=== PATIENT | male | born 1955 | race American Indian/Alaskan Native ===

== ENCOUNTER 2021-05-08 19:48 | Inpatient (IN) | payer OTHER ==
--- NOTE | 2021-05-08 21:36 | Emergency Department Report ---
HPI - General Chief Complaint: Dyspnea/Respdistress Time Seen by Provider: 05/08/21 21:22 - HPI HPI: 65-year-old -Stateless male presents to the emergency department with complaint of low oxygen found at home on the finger pulse oximeter. The patient tested positive for COVID-19 6 days ago. I am not sure what symptoms prompted him to get tested at that time. He has had some intermittent low-grade fevers, some mild lower abdominal discomfort, early satiety. He says that he came into the emergency department today because the finger pulse oximeter "never got above 90" all day. The patient denies feeling short of breath. He denies having any past medical history. No tobacco or illicit drug use. He has not taken anything for symptoms prior to presentation today. ED Past Medical Hx - Past Medical History Previous Medical History?: No - Surgical History Past Surgical History?: No ED Review of Systems ROS: Stated complaint: COVID+ LOW O2 Other details as noted in HPI Comment: All other systems reviewed and negative Constitutional: fever, weakness Eyes: denies: eye pain, vision change ENT: denies: ear pain, throat pain Respiratory: denies: shortness of breath, wheezing Cardiovascular: denies: chest pain, edema Gastrointestinal: abdominal pain. denies: vomiting Genitourinary: denies: dysuria, discharge Musculoskeletal: denies: back pain, arthralgia Skin: denies: rash, lesions Neurological: denies: numbness, paresthesias Physical Exam - Physical Exam Vital Signs: Vital Signs 05/08/21 20:50 Temperature 98.0 F Pulse Rate 47 L Respiratory 18 Rate Blood Pressure 116/67 O2 Sat by Pulse 85 Oximetry Physical Exam: GENERAL: The patient is well-developed well-nourished. HENT: Normocephalic. Atraumatic. Patient has moist mucous membranes. EYES: Extraocular motions are intact. NECK: Supple. Trachea is midline. CHEST/LUNGS: Rhonchi heard bilaterally. No tachypnea or accessory muscle use. HEART/CARDIOVASCULAR: Regular. There is no tachycardia. There is no murmur. ABDOMEN: Abdomen is soft, nontender. Patient has normal bowel sounds. SKIN: Skin is warm and dry. NEURO: The patient is awake, alert, and oriented. The patient is cooperative. The patient has no focal neurologic deficits. Normal speech. MUSCULOSKELETAL: There is no tenderness or deformity. There is no limitation range of motion. ED Course Vital Signs 05/08/21 20:50 Temperature 98.0 F Pulse Rate 47 L Respiratory 18 Rate Blood Pressure 116/67 O2 Sat by Pulse 85 Oximetry ED Medical Decision Making - Lab Data Result diagrams: 05/08/21 21:26 05/08/21 21:26 Lab Results 05/08/21 05/08/21 05/08/21 Range/Units 21:26 21:26 21:26 WBC 6.5 (4.5-11.0) K/mm3 RBC 4.70 (3.65-5.03) M/mm3 Hgb 14.2 (11.8-15.2) gm/dl Hct 41.9 (35.5-45.6) % MCV 89 (84-94) fl MCH 30 (28-32) pg MCHC 34 (32-34) % RDW 13.0 L (13.2-15.2) % Plt Count 204 (140-440) K/mm3 Add Manual Diff Complete Total Counted 100 Seg Neuts % (Manual) 82.0 H (40.0-70.0) % Lymphocytes % (Manual) 15.0 (13.4-35.0) % Monocytes % (Manual) 3.0 (0.0-7.3) % Nucleated RBC % Not Reportable Seg Neutrophils # Man 5.3 (1.8-7.7) K/mm3 Band Neutrophils # 0.0 K/mm3 Lymphocytes # (Manual) 1.0 L (1.2-5.4) K/mm3 Abs React Lymphs (Man) 0.0 K/mm3 Monocytes # (Manual) 0.2 (0.0-0.8) K/mm3 Eosinophils # (Manual) 0.0 (0.0-0.4) K/mm3 Basophils # (Manual) 0.0 (0.0-0.1) K/mm3 Metamyelocytes # 0.0 K/mm3 Myelocytes # 0.0 K/mm3 Promyelocytes # 0.0 K/mm3 Blast Cells # 0.0 K/mm3 WBC Morphology Not Reportable Hypersegmented Neuts Not Reportable Hyposegmented Neuts Not Reportable Hypogranular Neuts Not Reportable Smudge Cells Not Reportable Toxic Granulation Not Reportable Toxic Vacuolation Not Reportable Dohle Bodies Not Reportable Pelger-Huet Anomaly Not Reportable Ata Rods Not Reportable Platelet Estimate Consistent w auto Clumped Platelets Not Reportable Plt Clumps, EDTA Not Reportable Large Platelets Not Reportable Giant Platelets Not Reportable Platelet Satelliting Not Reportable Plt Morphology Comment Not Reportable RBC Morphology Not Reportable Dimorphic RBCs Not Reportable Polychromasia Not Reportable Hypochromasia Not Reportable Poikilocytosis Not Reportable Anisocytosis 1+ Microcytosis Not Reportable Macrocytosis Not Reportable Spherocytes Not Reportable Pappenheimer Bodies Not Reportable Sickle Cells Not Reportable Target Cells Not Reportable Tear Drop Cells Not Reportable Ovalocytes Not Reportable Helmet Cells Not Reportable [place] Bodies Not Reportable Peetz Rings Not Reportable Nik Cells Not Reportable Bite Cells Not Reportable Crenated Cell Not Reportable Elliptocytes Not Reportable Acanthocytes (Spur) Not Reportable Rouleaux Not Reportable Hemoglobin C Crystals Not Reportable Schistocytes Not Reportable Malaria parasites Not Reportable Ant Bodies Not Reportable Hem Pathologist Commnt No D-Dimer 548.39 H (0-234) ng/mlDDU Sodium 129 L (137-145) mmol/L Potassium 4.4 (3.6-5.0) mmol/L Chloride 91.7 L (98-107) mmol/L Carbon Dioxide 31 H (22-30) mmol/L Anion Gap 11 mmol/L BUN 19 (9-20) mg/dL Creatinine 1.0 (0.8-1.3) mg/dL Estimated GFR > 60 ml/min BUN/Creatinine Ratio 19 % Glucose 102 H (75-100) mg/dL Calcium 8.8 (8.4-10.2) mg/dL Ferritin (30.0-300.0) ng/mL Total Bilirubin 0.60 (0.1-1.2) mg/dL AST 53 H (5-40) units/L ALT 31 (7-56) units/L Alkaline Phosphatase 59 (35-129) units/L Lactate Dehydrogenase (91-180) units/L Troponin T (0.00-0.029) ng/mL C-Reactive Protein (0.00-1.30) mg/dL NT-Pro-B Natriuret Pep (0-900) pg/mL Total Protein 7.7 (6.3-8.2) g/dL Albumin 3.1 L (3.9-5) g/dL Albumin/Globulin Ratio 0.7 % 05/08/21 05/08/21 05/08/21 Range/Units 21:26 21:26 21:26 WBC (4.5-11.0) K/mm3 RBC (3.65-5.03) M/mm3 Hgb (11.8-15.2) gm/dl Hct (35.5-45.6) % MCV (84-94) fl MCH (28-32) pg MCHC (32-34) % RDW (13.2-15.2) % Plt Count (140-440) K/mm3 Add Manual Diff Total Counted Seg Neuts % (Manual) (40.0-70.0) % Lymphocytes % (Manual) (13.4-35.0) % Monocytes % (Manual) (0.0-7.3) % Nucleated RBC % Seg Neutrophils # Man (1.8-7.7) K/mm3 Band Neutrophils # K/mm3 Lymphocytes # (Manual) (1.2-5.4) K/mm3 Abs React Lymphs (Man) K/mm3 Monocytes # (Manual) (0.0-0.8) K/mm3 Eosinophils # (Manual) (0.0-0.4) K/mm3 Basophils # (Manual) (0.0-0.1) K/mm3 Metamyelocytes # K/mm3 Myelocytes # K/mm3 Promyelocytes # K/mm3 Blast Cells # K/mm3 WBC Morphology Hypersegmented Neuts Hyposegmented Neuts Hypogranular Neuts Smudge Cells Toxic Granulation Toxic Vacuolation Dohle Bodies Pelger-Huet Anomaly Ata Rods Platelet Estimate Clumped Platelets Plt Clumps, EDTA Large Platelets Giant Platelets Platelet Satelliting Plt Morphology Comment RBC Morphology Dimorphic RBCs Polychromasia Hypochromasia Poikilocytosis Anisocytosis Microcytosis Macrocytosis Spherocytes Pappenheimer Bodies Sickle Cells Target Cells Tear Drop Cells Ovalocytes Helmet Cells Padilla-[place] Bodies Peetz Rings Nik Cells Bite Cells Crenated Cell Elliptocytes Acanthocytes (Spur) Rouleaux Hemoglobin C Crystals Schistocytes Malaria parasites Ant Bodies Hem Pathologist Commnt D-Dimer (0-234) ng/mlDDU Sodium (137-145) mmol/L Potassium (3.6-5.0) mmol/L Chloride (98-107) mmol/L Carbon Dioxide (22-30) mmol/L Anion Gap mmol/L BUN (9-20) mg/dL Creatinine (0.8-1.3) mg/dL Estimated GFR ml/min BUN/Creatinine Ratio % Glucose (75-100) mg/dL Calcium (8.4-10.2) mg/dL Ferritin 1639.0 H (30.0-300.0) ng/mL Total Bilirubin (0.1-1.2) mg/dL AST (5-40) units/L ALT (7-56) units/L Alkaline Phosphatase (35-129) units/L Lactate Dehydrogenase 603 H (91-180) units/L Troponin T < 0.010 (0.00-0.029) ng/mL C-Reactive Protein 15.30 H (0.00-1.30) mg/dL NT-Pro-B Natriuret Pep 63.77 (0-900) pg/mL Total Protein (6.3-8.2) g/dL Albumin (3.9-5) g/dL Albumin/Globulin Ratio % - Radiology Data Radiology results: image reviewed interpreted by me: Chest x-ray shows bilateral patchy infiltrates concerning for pneumonia. No pneumothorax. No widened mediastinum. - Medical Decision Making This patient presents to the emergency department with a complaint of low oxygen, 6 days after being diagnosed with COVID-19. On examination he has bilateral rhonchi heard, but does not appear in respiratory distress other than the fact that he has a room air oxygen saturation of 85%. The patient was placed on nasal cannula at 3 L and his pulse ox went up to 95%. Chest x-ray shows bilateral patchy infiltrates concerning for pneumonia and consistent with COVID-19 infection. Patient's labs also appear consistent with COVID-19 as he has multiple elevated inflammatory markers such as D-dimer, LDH, CRP and ferritin levels. Patient has been given Decadron, IV fluid resuscitation, IV antibiotics. He will be admitted to the hospital for further evaluation and treatment and was accepted for admission by the hospitalist, Dr. Montgomery. Critical Care Time: Yes Critical care time in (mins) excluding proc time.: 31 Critical care attestation.: If time is entered above; I have spent that time in minutes in the direct care of this critically ill patient, excluding procedure time. Critical care time was spent on this patient in doing his initial evaluation, multiple reevaluations, ordering and interpretation of labs and imaging, IV Decadron, supplemental oxygen for his hypoxia, IV antibiotics, IV fluid resuscitation, and multiple discussions with the patient. Critical Care Time: 31 minutes ED Disposition Clinical Impression: Suspected 2019 novel coronavirus infection, Hypoxia Bilateral pneumonia Qualifiers: Pneumonia type: due to unspecified organism Lung location: unspecified part of lung Qualified Code(s): J18.9 - Pneumonia, unspecified organism Disposition: ADMITTED INPATIENT Is pt being admited?: Yes Condition: Serious Time of Disposition: 22:10
[2021-05-08] MEDS ORDERED: dexAMETHasone 4 MG/ML VIAL IV ONE (21:43)
[2021-05-08 21:45] LABS: Hematocrit 41.9 % (35.5-45.6); Hemoglobin 14.2 gm/dl (11.8-15.2); Mean Corpuscular HGB Conc 34 % (32-34); Mean Corpuscular Volume 89 fl (84-94); Platelet Count 204 K/mm3 (140-440)
[2021-05-08] MEDS ORDERED: SODIUM CHLORIDE 0.9% 1000 ML 1,000 ML IV ONE (22:05)
[2021-05-08 22:06] LABS: Alanine Aminotransferase 31 units/L (7-56); Albumin 3.1 g/dL (3.9-5); BUN/Creatinine Ratio 19; Blood Urea Nitrogen 19 mg/dL (9-20); Calcium 8.8 mg/dL (8.4-10.2); Hemolysis Index 13
[2021-05-08] MEDS ORDERED: AZITHROMYCIN/NS 500 MG/250 ML 500 MG/250 ML BAG IV ONE (22:06)
[2021-05-08] MEDS ORDERED: ACETAMINOPHEN 325 MG TAB PO PRN (22:35)
[2021-05-08] MEDS ORDERED: MORPHINE 2 MG/1 ML INJ IV PRN (22:35)
[2021-05-08] MEDS ORDERED: MORPHINE 4 MG/1 ML INJ IV PRN (22:35)
[2021-05-08] MEDS ORDERED: ONDANSETRON 4 MG/2 ML INJ IV PRN (22:35)
[2021-05-08] MEDS ORDERED: MAGNESIUM HYDROXIDE (MOM) ORAL LIQD UDC PO PRN (22:35)
[2021-05-08] MEDS ORDERED: SODIUM CHLORIDE 0.9% 1000 ML 1,000 ML IV SCH (22:45)
--- NOTE | 2021-05-08 22:46 | History and Physical Report ---
History of Present Illness Date of examination: 05/08/21 Date of admission: 05/08/2021 Chief complaint: Shortness of Breath History of present illness: 65-year-old -[place] male with no significant past medical history presents to the emergency room today with shortness of breath and low oxygen saturation at home. Patient was diagnosed with COVID-19 about 6 days ago. He states he was feeling tired lately and therefore was encouraged by his to get a Covid test which turned out to be positive. He has had some low-grade fever and some chills. He had some lower abdominal pain but denies any nausea vomiting and denies any diarrhea. Denies any headache or dizziness denies any diaphoresis. 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 Denies any recent travel and no sick contacts denies any contact with anyone with COVID-19. He has not been vaccinated against COVID-19. Upon arrival in the emergency room oxygen saturation was about 85% on room air. Work-up in the emergency room today, significant findings were that of sodium of 129. Chest x-ray reveals bilateral patchy infiltrates. Patient has been admitted with COVID-19 pneumonia, hypoxia and hyponatremia. Past History Past Medical History: No medical history Past Surgical History: No surgical history Social history: no significant social history Family history: no significant family history Medications and Allergies Allergies Allergy/AdvReac Type Severity Reaction Status Date / Time No Known Allergies Allergy Unverified 05/08/21 22:48 Active Meds: Active Medications Acetaminophen (Acetaminophen 325 Mg Tab) 650 mg PO Q4H PRN PRN Reason: Pain MILD(1-3)/Fever >100.5/FLORES Dexamethasone (Dexamethasone 4 Mg/Ml Vial) 8 mg IV ONCE ONE Stop: 05/08/21 21:44 Sodium Chloride (Nacl 0.9% 1000 Ml) 1,000 mls @ 125 mls/hr IV ONCE ONE Stop: 05/09/21 06:04 Ceftriaxone Sodium (Rocephin/Ns 1 Gm/50 Ml) 1 gm in 50 mls @ 100 mls/hr IV ONCE ONE; Protocol Stop: 05/08/21 22:34 Azithromycin (Zithromax/Ns) 500 mg in 250 mls @ 250 mls/hr IV ONCE ONE; Protocol Stop: 05/08/21 23:05 Sodium Chloride (Nacl 0.9% 1000 Ml) 1,000 mls @ 75 mls/hr IV DIRECT JAVIER Ceftriaxone Sodium (Rocephin/Ns 2 Gm/100 Ml) 2 gm in 100 mls @ 200 mls/hr IV Q24H JAVIER; Protocol Azithromycin (Zithromax/Ns) 500 mg in 250 mls @ 250 mls/hr IV Q24H JAVIER; Protocol Magnesium Hydroxide (Magnesium Hydroxide (Mom) Oral Liqd Udc) 30 ml PO Q4H PRN PRN Reason: Constipation Morphine Sulfate (Morphine 2 Mg/1 Ml Inj) 2 mg IV Q4H PRN PRN Reason: Pain, Moderate (4-6) Morphine Sulfate (Morphine 4 Mg/1 Ml Inj) 4 mg IV Q4H PRN PRN Reason: Pain , Severe (7-10) Ondansetron HCl (Ondansetron 4 Mg/2 Ml Inj) 4 mg IV Q8H PRN PRN Reason: Nausea And Vomiting Sodium Chloride (Sodium Chloride 0.9% 10 Ml Flush Syringe) 10 ml IV BID JAVIER Sodium Chloride (Sodium Chloride 0.9% 10 Ml Flush Syringe) 10 ml IV PRN PRN PRN Reason: LINE FLUSH Review of Systems Constitutional: fever, chills, fatigue Ears, nose, mouth and throat: no nasal congestion, no sore throat Cardiovascular: no chest pain, no palpitations Respiratory: cough, shortness of breath Gastrointestinal: abdominal pain (Mild), no nausea, no vomiting, no diarrhea Genitourinary Male: no dysuria, no hematuria, no flank pain, no nocturia, no polyuria Musculoskeletal: no neck pain, no low back pain Integumentary: no rash, no pruritis Neurological: no headaches, no confusion Psychiatric: no anxiety, no depression Endocrine: no polyphagia, no polydipsia, no polyuria, no nocturia Exam - Constitutional Vitals: Temp Pulse Resp BP Pulse Ox 98.0 F 47 L 18 116/67 85 05/08/21 20:50 05/08/21 20:50 05/08/21 20:50 05/08/21 20:50 05/08/21 20:50 General appearance: Present: no acute distress, well-nourished - EENT Eyes: Present: PERRL, EOM intact. Absent: scleral icterus ENT: hearing intact, clear oral mucosa, dentition normal - Neck Neck: Present: supple, normal ROM - Respiratory Respiratory effort: normal Respiratory: bilateral: rales - Cardiovascular Rhythm: regular Heart Sounds: Present: S1 & S2. Absent: gallop, systolic murmur, diastolic murmur, rub, click - Extremities Extremities: no ischemia, pulses intact, pulses symmetrical, No edema, normal temperature, normal color, Full ROM Peripheral Pulses: within normal limits - Abdominal General gastrointestinal: Present: soft, non-tender, non-distended, normal bowel sounds. Absent: mass - Integumentary Integumentary: Present: clear, warm, dry. Absent: rash - Musculoskeletal Musculoskeletal: strength equal bilaterally - Psychiatric Psychiatric: appropriate mood/affect, intact judgment & insight, memory intact, cooperative - Neurologic Neurologic: CNII-XII intact, no focal deficits, moves all extremities HEART Score - HEART Score Troponin: Troponin T < 0.010 ng/mL (0.00-0.029) 05/08/21 21: Results - Labs CBC & Chem 7: 05/08/21 21:05/08/21 21: Labs: Abnormal lab results 05/08/21 05/08/21 05/08/21 Range/Units 21: 21: 21:26 RDW 13.0 L (13.2-15.2) % D-Dimer 548.39 H (0-234) ng/mlDDU Sodium 129 L (137-145) mmol/L Chloride 91.7 L (98-107) mmol/L Carbon Dioxide 31 H (22-30) mmol/L Glucose 102 H (75-100) mg/dL Ferritin (30.0-300.0) ng/mL AST 53 H (5-40) units/L Lactate Dehydrogenase (91-180) units/L C-Reactive Protein (0.00-1.30) mg/dL Albumin 3.1 L (3.9-5) g/dL 05/08/21 05/08/21 Range/Units :26 21:26 RDW (13.2-15.2) % D-Dimer (0-234) ng/mlDDU Sodium (137-145) mmol/L Chloride (98-107) mmol/L Carbon Dioxide (22-30) mmol/L Glucose (75-100) mg/dL Ferritin 1639.0 H (30.0-300.0) ng/mL AST (5-40) units/L Lactate Dehydrogenase 603 H (91-180) units/L C-Reactive Protein 15.30 H (0.00-1.30) mg/dL Albumin (3.9-5) g/dL Assessment and Plan - Patient Problems (1) Bilateral pneumonia Current Visit: Yes Status: Acute Qualifiers: Pneumonia type: due to unspecified organism Lung location: unspecified part of lung Qualified Code(s): J18.9 - Pneumonia, unspecified organism Plan to address problem: Possibly secondary to COVID-19. Patient placed on empiric IV antibiotics. Will await culture results. (2) Hypoxia Current Visit: Yes Status: Acute Plan to address problem: Secondary to the pneumonia. We will keep O2 saturation greater or equal to 92%. (3) Suspected 2019 novel coronavirus infection Current Visit: Yes Status: Acute Plan to address problem: Patient was diagnosed with COVID-19 about 6 days [address] We will place on isolation precautions. Patient placed on IV steroid. We will place consult to infectious disease for evaluation. (4) Hyponatremia Current Visit: No Status: Acute Plan to address problem: Patient placed on IV fluid normal saline. We will monitor her chemistry. (5) DVT prophylaxis Current Visit: No Status: Acute Plan to address problem: Patient placed on anticoagulation with subcutaneous Lovenox. (6) Full code status Current Visit: No Status: Acute Plan to address problem: Patient is full code.
[2021-05-08] MEDS ORDERED: cefTRIAXone/NS 1 GM/50 ML 1 GM/50 ML BAG IV ONE (23:05)
[2021-05-08 23:56] LABS: Anisocytosis 1+; Platelet Estimate Consistent w Auto; Total Cells Counted 100
--- NOTE | 2021-05-09 00:58 | XRay Report ---
XR chest 1V ap INDICATION / CLINICAL INFORMATION: SOB/COVID t. COMPARISON: None available. FINDINGS: SUPPORT DEVICES: None. HEART /PULMONARY VASCULATURE: No significant abnormality. LUNGS / PLEURA: Moderately severe pulmonary airspace opacities are present. There is no sizable pleur al effusion. No pneumothorax. ADDITIONAL FINDINGS: No significant additional findings. IMPRESSION: Diffuse pulmonary airspace disease, in keeping with reported history of COVID. Signer Name: Karson Lakhani MD Signed: 05/09/2021 12:54 AM Workstation Name: [id number]
[2021-05-09 06:10] LABS: Basophils % (Auto) 0.2 % (0.0-1.8); Hematocrit 39.9 % (35.5-45.6); Hemoglobin 13.9 gm/dl (11.8-15.2); Lymphocytes # (Auto) 0.6 K/mm3 (1.2-5.4); Mean Corpuscular HGB Conc 35 % (32-34); Mean Corpuscular Volume 89 fl (84-94); Monocytes # (Auto) 0.3 K/mm3 (0.0-0.8); Monocytes % (Auto) 5.8 % (0.0-7.3); Platelet Count 196 K/mm3 (140-440); Red Blood Count 4.48 M/mm3 (3.65-5.03); Red Cell Distribution Width 13.2 % (13.2-15.2)
[2021-05-09 06:11] LABS: BUN/Creatinine Ratio 20; Blood Urea Nitrogen 20 mg/dL (9-20); Calcium 8.7 mg/dL (8.4-10.2); Hemolysis Index 9
[2021-05-09 06:17] LABS: INR 0.94 (0.87-1.13)
[2021-05-09] MEDS: dexAMETHasone 4 MG/ML VIAL IV SCH (09:44)
--- NOTE | 2021-05-09 13:07 | Progress Note ---
Assessment and Plan Assessment and plan: 65-year-old -F[place]ian male with no significant past medical history presents to the emergency room today with shortness of breath and low oxygen saturation at home. Patient was diagnosed with COVID-19 about 6 days ago. He states he was feeling tired lately and therefore was encouraged by his to get a Covid test which turned out to be positive. He has had some low-grade fever and some chills. He had some lower abdominal pain but denies any nausea vomiting and denies any diarrhea. Denies any headache or dizziness denies any diaphoresis. 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 Denies any recent travel and no sick contacts denies any contact with anyone with COVID-19. He has not been vaccinated against COVID-19. Upon arrival in the emergency room oxygen saturation was about 85% on room air. Work-up in the emergency room today, significant findings were that of sodium of 129. Chest x-ray reveals bilateral patchy infiltrates. Patient has been admitted with COVID-19 pneumonia, hypoxia and hyponatremia. 05/09: Patient remains on 3 L of oxygen. I requested for an a.m. home oxygen evaluation I did recommend prone positioning continue current management. Sodium has shown some improvement. Awaiting COVID-19 test result. It is imperative that he has an exercise walk test prior to discharge. Major studies reviewed shows bilateral infiltrates, agree with note the reason (1) Bilateral pneumonia Current Visit: Yes Status: Acute Qualifiers: Pneumonia type: due to unspecified organism Lung location: unspecified part of lung Qualified Code(s): J18.9 - Pneumonia, unspecified organism Plan to address problem: Possibly secondary to COVID-19. Patient placed on empiric IV antibiotics. Will await culture results. (2) Hypoxia Current Visit: Yes Status: Acute Plan to address problem: Secondary to the pneumonia. We will keep O2 saturation greater or equal to 92%. (3) Suspected 2019 novel coronavirus infection Current Visit: Yes Status: Acute Plan to address problem: Patient was diagnosed with COVID-19 about [address] We will place on isolation precautions. Patient placed on IV steroid. We will place consult to infectious disease for evaluation. (4) Hyponatremia Current Visit: No Status: Acute Plan to address problem: Patient placed on IV fluid normal saline. We will monitor her chemistry. (5) DVT prophylaxis Current Visit: No Status: Acute Plan to address problem: Patient placed on anticoagulation with subcutaneous Lovenox. (6) Full code status Current Visit: No Status: Acute Plan to address problem: Patient is full code. History Interval history: Patient seen and examined still on 3 L of oxygen approximator he is improving. Denies any exertional dyspnea. Hospitalist Physical - Physical exam Narrative exam: General appearance: Present: no acute distress, well-nourished on 3 L of oxygen - EENT Eyes: Present: PERRL, EOM intact. Absent: scleral icterus ENT: hearing intact, clear oral mucosa, dentition normal - Neck Neck: Present: supple, normal ROM - Respiratory Respiratory effort: normal Respiratory: bilateral: rales - Cardiovascular Rhythm: regular Heart Sounds: Present: S1 & S2. Absent: gallop, systolic murmur, diastolic murmur, rub, click - Extremities Extremities: no ischemia, pulses intact, pulses symmetrical, No edema, normal temperature, normal color, Full ROM Peripheral Pulses: within normal limits - Abdominal General gastrointestinal: Present: soft, non-tender, non-distended, normal bowel sounds. Absent: mass - Integumentary Integumentary: Present: clear, warm, dry. Absent: rash - Musculoskeletal Musculoskeletal: strength equal bilaterally - Psychiatric Psychiatric: appropriate mood/affect, intact judgment & insight, memory intact, cooperative - Neurologic Neurologic: CNII-XII intact, no focal deficits, moves all extremities - Constitutional Vitals: Temp Pulse Resp BP Pulse Ox 98.8 F 60 18 127/78 93 05/09/21 11:16 05/09/21 11:16 05/09/21 11:16 05/09/21 11:16 05/09/21 11:16 General appearance: Present: no acute distress, well-nourished HEART Score - HEART Score Troponin: Troponin T < 0.010 ng/mL (0.00-0.029) 05/08/21 21:26 Results - Labs CBC & Chem 7: 05/09/21 05:23 05/09/21 05:23 Labs: Laboratory Last Values WBC 5.6 K/mm3 (4.5-11.0) 05/09/21 05:23 RBC 4.48 M/mm3 (3.65-5.03) 05/09/21 05:23 Hgb 13.9 gm/dl (11.8-15.2) 05/09/21 05:23 Hct 39.9 % (35.5-45.6) 05/09/21 05:23 MCV 89 fl (84-94) 05/09/21 05:23 MCH 31 pg (28-32) 05/09/21 05:23 MCHC 35 % (32-34) H 05/09/21 05:23 RDW 13.2 % (13.2-15.2) 05/09/21 05:23 Plt Count 196 K/mm3 (140-440) 05/09/21 05:23 Lymph % (Auto) 10.0 % (13.4-35.0) L 05/09/21 05:23 Hart % (Auto) 5.8 % (0.0-7.3) 05/09/21 05:23 Eos % (Auto) 0.0 % (0.0-4.3) 05/09/21 05:23 Baso % (Auto) 0.2 % (0.0-1.8) 05/09/21 05:23 Lymph # (Auto) 0.6 K/mm3 (1.2-5.4) L 05/09/21 05:23 Hart # (Auto) 0.3 K/mm3 (0.0-0.8) 05/09/21 05:23 Eos # (Auto) 0.0 K/mm3 (0.0-0.4) 05/09/21 05:23 Baso # (Auto) 0.0 K/mm3 (0.0-0.1) 05/09/21 05:23 Add Manual Diff Complete 05/08/21 21:26 Total Counted 100 05/08/21 21:26 Seg Neutrophils % 84.0 % (40.0-70.0) H 05/09/21 05:23 Seg Neuts % (Manual) 82.0 % (40.0-70.0) H 05/08/21 21:26 Lymphocytes % (Manual) 15.0 % (13.4-35.0) 05/08/21 21:26 Monocytes % (Manual) 3.0 % (0.0-7.3) 05/08/21 21:26 Nucleated RBC % Not Reportable 05/08/21 21:26 Seg Neutrophils # 4.7 K/mm3 (1.8-7.7) 05/09/21 05:23 Seg Neutrophils # Man 5.3 K/mm3 (1.8-7.7) 05/08/21 21:26 Band Neutrophils # 0.0 K/mm3 05/08/21 21:26 Lymphocytes # (Manual) 1.0 K/mm3 (1.2-5.4) L 05/08/21 21:26 Abs React Lymphs (Man) 0.0 K/mm3 05/08/21 21:26 Monocytes # (Manual) 0.2 K/mm3 (0.0-0.8) 05/08/21 21:26 Eosinophils # (Manual) 0.0 K/mm3 (0.0-0.4) 05/08/21 21:26 Basophils # (Manual) 0.0 K/mm3 (0.0-0.1) 05/08/21 21:26 Metamyelocytes # 0.0 K/mm3 05/08/21 21:26 Myelocytes # 0.0 K/mm3 05/08/21 21:26 Promyelocytes # 0.0 K/mm3 05/08/21 21:26 Blast Cells # 0.0 K/mm3 05/08/21 21:26 WBC Morphology Not Reportable 05/08/21 21:26 Hypersegmented Neuts Not Reportable 05/08/21 21:26 Hyposegmented Neuts Not Reportable 05/08/21 21:26 Hypogranular Neuts Not Reportable 05/08/21 21:26 Smudge Cells Not Reportable 05/08/21 21:26 Toxic Granulation Not Reportable 05/08/21 21:26 Toxic Vacuolation Not Reportable 05/08/21 21:26 Dohle Bodies Not Reportable 05/08/21 21:26 Pelger-Huet Anomaly Not Reportable 05/08/21 21:26 Ata Rods Not Reportable 05/08/21 21:26 Platelet Estimate Consistent w auto 05/08/21 21:26 Clumped Platelets Not Reportable 05/08/21 21:26 Plt Clumps, EDTA Not Reportable 05/08/21 21:26 Large Platelets Not Reportable 05/08/21 21:26 Giant Platelets Not Reportable 05/08/21 21:26 Platelet Satelliting Not Reportable 05/08/21 21:26 Plt Morphology Comment Not Reportable 05/08/21 21:26 RBC Morphology Not Reportable 05/08/21 21:26 Dimorphic RBCs Not Reportable 05/08/21 21:26 Polychromasia Not Reportable 05/08/21 21:26 Hypochromasia Not Reportable 05/08/21 21:26 Poikilocytosis Not Reportable 05/08/21 21:26 Anisocytosis 1+ 05/08/21 21:26 Microcytosis Not Reportable 05/08/21 21:26 Macrocytosis Not Reportable 05/08/21 21:26 Spherocytes Not Reportable 05/08/21 21:26 Pappenheimer Bodies Not Reportable 05/08/21 21:26 Sickle Cells Not Reportable 05/08/21 21:26 Target Cells Not Reportable 05/08/21 21:26 Tear Drop Cells Not Reportable 05/08/21 21:26 Ovalocytes Not Reportable 05/08/21 21:26 Helmet Cells Not Reportable 05/08/21 21:26 [place] Bodies Not Reportable 05/08/21 21:26 Aubrey Rings Not Reportable 05/08/21 21:26 Nik Cells Not Reportable 05/08/21 21:26 Bite Cells Not Reportable 05/08/21 21:26 Crenated Cell Not Reportable 05/08/21 21:26 Elliptocytes Not Reportable 05/08/21 21:26 Acanthocytes (Spur) Not Reportable 05/08/21 21:26 Rouleaux Not Reportable 05/08/21 21:26 Hemoglobin C Crystals Not Reportable 05/08/21 21:26 Schistocytes Not Reportable 05/08/21 21:26 Malaria parasites Not Reportable 05/08/21 21:26 Ant Bodies Not Reportable 05/08/21 21:26 Hem Pathologist Commnt No 05/08/21 21:26 PT 13.1 Sec. (12.2-14.9) 05/09/21 05:23 INR 0.94 (0.87-1.13) 05/09/21 05:23 D-Dimer 548.39 ng/mlDDU (0-234) H 05/08/21 21:26 Sodium 132 mmol/L (137-145) L 05/09/21 05:23 Potassium 5.1 mmol/L (3.6-5.0) H 05/09/21 05:23 Chloride 94.5 mmol/L (98-107) L 05/09/21 05:23 Carbon Dioxide 25 mmol/L (22-30) 05/09/21 05:23 Anion Gap 18 mmol/L 05/09/21 05:23 BUN 20 mg/dL (9-20) 05/09/21 05:23 Creatinine 1.0 mg/dL (0.8-1.3) 05/09/21 05:23 Estimated GFR > 60 ml/min 05/09/21 05:23 BUN/Creatinine Ratio 20 % 05/09/21 05:23 Glucose 127 mg/dL (75-100) H 05/09/21 05:23 Calcium 8.7 mg/dL (8.4-10.2) 05/09/21 05:23 Ferritin 1639.0 ng/mL (30.0-300.0) H 05/08/21 21:26 Total Bilirubin 0.60 mg/dL (0.1-1.2) 05/08/21 21:26 AST 53 units/L (5-40) H 05/08/21 21:26 ALT 31 units/L (7-56) 05/08/21 21:26 Alkaline Phosphatase 59 units/L (35-129) 05/08/21 21:26 Lactate Dehydrogenase 603 units/L (91-180) H 05/08/21 21:26 Troponin T < 0.010 ng/mL (0.00-0.029) 05/08/21 21:26 C-Reactive Protein 15.30 mg/dL (0.00-1.30) H 05/08/21 21:26 NT-Pro-B Natriuret Pep 63.77 pg/mL (0-900) 05/08/21 21:26 Total Protein 7.7 g/dL (6.3-8.2) 05/08/21 21:26 Albumin 3.1 g/dL (3.9-5) L 05/08/21 21:26 Albumin/Globulin Ratio 0.7 % 05/08/21 21:26 Vee/IV: Voiding Method Urinal Active Medications - Current Medications Current Medications: Generic Name Dose Route Start Last Admin Trade Name Freq PRN Reason Stop Dose Admin Acetaminophen 650 mg 05/08/21 22:35 Acetaminophen 325 Mg Tab PO Q4H PRN Pain MILD(1-3)/Fever >100.5/FLORES Dexamethasone 6 mg 05/09/21 10:00 05/09/21 09:44 Dexamethasone 4 Mg/Ml Vial IV 05/17/21 10:01 6 mg Q24HR JAVIER Administration Enoxaparin Sodium 40 mg 05/09/21 22:00 Enoxaparin 40 Mg/0.4 Ml Inj SUB-Q QDAY@2200 [facility] Protocol Furosemide 40 mg 05/09/21 14:00 Furosemide 40 Mg/4 Ml Inj IV 05/10/21 10:01 QDAY JAVIER Ceftriaxone Sodium 2 gm in 100 mls @ 200 mls/hr 05/09/21 22:00 Rocephin/Ns 2 Gm/100 Ml IV 05/12/21 22:29 QHS [facility] Protocol Azithromycin 500 mg in 250 mls @ 250 mls/hr 05/09/21 22:00 [facility]Ns [facility]12[facility] Magnesium Hydroxide 30 ml 05/08/21 22:35 Magnesium Hydroxide (Mom) Oral Liqd Udc PO Q4H PRN Constipation Morphine Sulfate 2 mg 05/08/21 22:35 Morphine 2 Mg/1 Ml Inj IV Q4H PRN Pain, Moderate (4-6) Morphine Sulfate 4 mg 05/08/21 22:35 Morphine 4 Mg/1 Ml Inj IV Q4H PRN Pain , Severe (7-10) Ondansetron HCl 4 mg 05/08/21 22:35 Ondansetron 4 Mg/2 Ml Inj IV Q8H PRN Nausea And Vomiting Sodium Chloride 10 ml 05/09/21 10:00 Sodium Chloride 0.9% 10 Ml Flush Syringe IV BID JAVIER Sodium Chloride 10 ml 05/08/21 22:35 Sodium Chloride 0.9% 10 Ml Flush Syringe IV PRN PRN LINE FLUSH
[2021-05-09] MEDS: FUROSEMIDE 40 MG/4 ML INJ IV SCH (14:43)
--- NOTE | 2021-05-09 16:12 | Consultation ---
History of Present Illness - Reason for Consult Consult date: 05/09/21 COVID-19 - History of Present Illness 65-year-old male with no medical history, tested positive for COVID-19 6-day before admission, secondary to his weakness fever, chills, nominal pain, dry cough. O2 sats dropped to 85% on room air. Initial temperature 98. Initial WBC 6.5. Platelets 204. D-dimer 548. CRP 15.3. Ferritin 1639. AST 53. Procalcitonin 0.16. Chest x-ray shows bilateral patchy infiltrates. Review of Systems: reviewed ED and H&P notes. Review of system deferred to minimize COVID-19 transmission. Past History Past Medical History: No medical history Past Surgical History: No surgical history Social history: no significant social history Family history: no significant family history Medications and Allergies Allergies Allergy/AdvReac Type Severity Reaction Status Date / Time No Known Allergies Allergy Unverified 05/08/21 22:48 Home Medications Medication Instructions Recorded Confirmed Last Taken Type No Known Home Medications [No 05/09/21 05/09/21 Unknown History Reported Home Medications] Active Meds: Active Medications Acetaminophen (Acetaminophen 325 Mg Tab) 650 mg PO Q4H PRN PRN Reason: Pain MILD(1-3)/Fever >100.5/FLORES Dexamethasone (Dexamethasone 4 Mg/Ml Vial) 6 mg IV Q24HR [facility] Stop: 05/17/21 10:01 Last Admin: 05/09/21 09:44 Dose: 6 mg Documented by: Enoxaparin Sodium (Enoxaparin 40 Mg/0.4 Ml Inj) 40 mg SUB-Q QDAY@2200 JAVIER; Protocol Furosemide (Furosemide 40 Mg/4 Ml Inj) 40 mg IV QDAY JAVIER Stop: 05/10/21 10:01 Last Admin: 05/09/21 14:43 Dose: 40 mg Documented by: Ceftriaxone Sodium (Rocephin/Ns 2 Gm/100 Ml) 2 gm in 100 mls @ 200 mls/hr IV QHS JAVIER; Protocol Stop: 05/12/21 22:29 Azithromycin (Zithromax/Ns) 500 mg in 250 mls @ 250 mls/hr IV QHS JAVIER; Protocol Stop: 05/12/21 22:59 Magnesium Hydroxide (Magnesium Hydroxide (Mom) Oral Liqd Udc) 30 ml PO Q4H PRN PRN Reason: Constipation Morphine Sulfate (Morphine 2 Mg/1 Ml Inj) 2 mg IV Q4H PRN PRN Reason: Pain, Moderate (4-6) Morphine Sulfate (Morphine 4 Mg/1 Ml Inj) 4 mg IV Q4H PRN PRN Reason: Pain , Severe (7-10) Ondansetron HCl (Ondansetron 4 Mg/2 Ml Inj) 4 mg IV Q8H PRN PRN Reason: Nausea And Vomiting Sodium Chloride (Sodium Chloride 0.9% 10 Ml Flush Syringe) 10 ml IV BID JAVIER Last Admin: 05/09/21 14:43 Dose: 10 ml Documented by: Sodium Chloride (Sodium Chloride 0.9% 10 Ml Flush Syringe) 10 ml IV PRN PRN PRN Reason: LINE FLUSH Physical Examination - Physical Exam Narrative exam: Physical exam deferred to minimize COVID-19 transmission during pandemic. - Constitutional Vitals: Vital Signs Temp Pulse Resp BP Pulse Ox 98.8 F 60 18 127/78 96 05/09/21 11:16 05/09/21 11:16 05/09/21 11:16 05/09/21 11:16 05/09/21 14:00 Temperature -Last 24 Hours Temperature 98.8 F Temperature 98.2 F Temperature 98.7 F Temperature 98.0 F Results - Labs CBC & Chem 7: 05/09/21 05:23 05/09/21 05:23 Labs: Abnormal lab results 05/08/21 05/08/21 05/08/21 Range/Units 21:26 21:26 21:26 MCHC (32-34) % RDW 13.0 L (13.2-15.2) % Lymph % (Auto) (13.4-35.0) % Lymph # (Auto) (1.2-5.4) K/mm3 Seg Neutrophils % (40.0-70.0) % Seg Neuts % (Manual) 82.0 H (40.0-70.0) % Lymphocytes # (Manual) 1.0 L (1.2-5.4) K/mm3 D-Dimer 548.39 H (0-234) ng/mlDDU Sodium 129 L (137-145) mmol/L Potassium (3.6-5.0) mmol/L Chloride 91.7 L (98-107) mmol/L Carbon Dioxide 31 H (22-30) mmol/L Glucose 102 H (75-100) mg/dL Ferritin (30.0-300.0) ng/mL AST 53 H (5-40) units/L Lactate Dehydrogenase (91-180) units/L C-Reactive Protein (0.00-1.30) mg/dL Albumin 3.1 L (3.9-5) g/dL Coronavirus (PCR) (Negative) 05/08/21 05/08/21 05/09/21 Range/Units 21:26 21:26 05:23 MCHC 35 H (32-34) % RDW (13.2-15.2) % Lymph % (Auto) 10.0 L (13.4-35.0) % Lymph # (Auto) 0.6 L (1.2-5.4) K/mm3 Seg Neutrophils % 84.0 H (40.0-70.0) % Seg Neuts % (Manual) (40.0-70.0) % Lymphocytes # (Manual) (1.2-5.4) K/mm3 D-Dimer (0-234) ng/mlDDU Sodium (137-145) mmol/L Potassium (3.6-5.0) mmol/L Chloride (98-107) mmol/L Carbon Dioxide (22-30) mmol/L Glucose (75-100) mg/dL Ferritin 1639.0 H (30.0-300.0) ng/mL AST (5-40) units/L Lactate Dehydrogenase 603 H (91-180) units/L C-Reactive Protein 15.30 H (0.00-1.30) mg/dL Albumin (3.9-5) g/dL Coronavirus (PCR) (Negative) 05/09/21 05/09/21 Range/Units 05:23 07:20 MCHC (32-34) % RDW (13.2-15.2) % Lymph % (Auto) (13.4-35.0) % Lymph # (Auto) (1.2-5.4) K/mm3 Seg Neutrophils % (40.0-70.0) % Seg Neuts % (Manual) (40.0-70.0) % Lymphocytes # (Manual) (1.2-5.4) K/mm3 D-Dimer (0-234) ng/mlDDU Sodium 132 L (137-145) mmol/L Potassium 5.1 H (3.6-5.0) mmol/L Chloride 94.5 L (98-107) mmol/L Carbon Dioxide (22-30) mmol/L Glucose 127 H (75-100) mg/dL Ferritin (30.0-300.0) ng/mL AST (5-40) units/L Lactate Dehydrogenase (91-180) units/L C-Reactive Protein (0.00-1.30) mg/dL Albumin (3.9-5) g/dL Coronavirus (PCR) Positive A (Negative) Assessment and Plan Cultures: SARS CoV2 PCR positive Assessment: 65-year-old male with no medical history, tested positive for COVID- 19 6-day before admission, secondary to 7-day of weakness, fever, chills, nom inal pain, dry cough: #Severe COVID pneumonia: CXR with bilateral patchy infiltrates. Infllammatory markers elevated. D-dimer 548. CRP 15.3. Ferritin 1639. Procalcitonin 0.16. #Acute hypoxemic respiratory failure: Currently on 2 L nasal cannula. #Elevated LFTs: from COVID. AST 53. Recommendations: -Continue Dexamethasone 6 mg IV/PO daily for 10 days -Start Remdesivir for 5 days (CrCl>30 mg/mL) ordered -Candidate for Tocilizumab at this time given patient only on 2 L nasal cannula however CRP very high at 15.3. If oxygenation requirements worsen requiring HFNC consider Tocilizumab. -Monitor inflammatory markers - ferritin, Ddimer, CRP, LDH -Monitor liver function test on Remdesivir -Continue anticoagulation per System Protocol -Prone positioning as possible -Stop ceftriaxone and azithromycin, procalcitonin <0.25 ng/mL All laboratory, cultures and imaging were reviewed. Will follow Viri Meade MD Infectious Diseases [facility] [place] [facility] M [phone] O [phone]
[2021-05-09] MEDS ORDERED: REMDESIVIR 200 MG in SODIUM CHLORIDE 0.9% 250ML 250 ML IV SCH (17:00)
[2021-05-09] MEDS ORDERED: SODIUM CHLORIDE 0.9% 50 ML IVPB IV SCH (18:00)
[2021-05-09 20:04] LABS: Alanine Aminotransferase 42 units/L (7-56); Albumin 3.4 g/dL (3.9-5); BUN/Creatinine Ratio 23; Blood Urea Nitrogen 23 mg/dL (9-20); Calcium 8.6 mg/dL (8.4-10.2); Hemolysis Index 6
[2021-05-09] MEDS ORDERED: AZITHROMYCIN/NS 500 MG/250 ML 500 MG/250 ML BAG IV SCH (22:00)
[2021-05-09] MEDS ORDERED: cefTRIAXone/NS 2 GM/100 ML 2 GM/100 ML BAG IV SCH (22:00)
[2021-05-09] MEDS ORDERED: ENOXAPARIN 40 MG/0.4 ML INJ SUB-Q SCH (22:00)
[2021-05-10 06:42] LABS: Hematocrit 42.9 % (35.5-45.6); Hemoglobin 14.5 gm/dl (11.8-15.2); Mean Corpuscular HGB Conc 34 % (32-34); Mean Corpuscular Volume 89 fl (84-94); Platelet Count 268 K/mm3 (140-440); Red Blood Count 4.81 M/mm3 (3.65-5.03)
[2021-05-10 07:02] LABS: Alanine Aminotransferase 49 units/L (7-56); Albumin 3.3 g/dL (3.9-5); BUN/Creatinine Ratio 23; Blood Urea Nitrogen 23 mg/dL (9-20); Calcium 9.2 mg/dL (8.4-10.2); Hemolysis Index 3
--- NOTE | 2021-05-10 09:30 | Discharge Summary ---
Providers - Providers Date of Admission: 05/08/21 22:35 Attending physician: NAKITA MALDONADO MD 05/08/21 22:35 Consult to Physician [CONS] Routine Comment: Consulting Provider: LIBAN BARNEY Physician Instructions: Reason For Exam: COVID-19 PNEUMONIA, HYPOXIA 05/10/21 07:46 Consult to Case Management [CONS] Routine Services Needed at Discharge: Home O2 Primary care physician: RUSLAN VARGAS Hospitalization Reason for admission: shortness of breath Condition: Fair Hospital course: 65-year-old -[place]ic male with no significant past medical history presents to the emergency room today with shortness of breath and low oxygen saturation at home. Patient was diagnosed with COVID-19 about 6 days ago. He states he was feeling tired lately and therefore was encouraged by his to get a Covid test which turned out to be positive. He has had some low-grade fever and some chills. He had some lower abdominal pain but denies any nausea vomiting and denies any diarrhea. Denies any headache or dizziness denies any diaphoresis. 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 Denies any recent travel and no sick contacts denies any contact with anyone with COVID-19. He has not been vaccinated against COVID-19. Upon arrival in the emergency room oxygen saturation was about 85% on room air. Work-up in the emergency room today, significant findings were that of sodium of 129. Chest x-ray reveals bilateral patchy infiltrates. Patient has been admitted with COVID-19 pneumonia, hypoxia and hyponatremia. 05/09: Patient remains on 3 L of oxygen. I requested for an a.m. home oxygen evaluation I did recommend prone positioning continue current management. Sodium has shown some improvement. Awaiting COVID-19 test result. It is imperative that he has an exercise walk test prior to discharge. Major studies reviewed shows bilateral infiltrates, agree with note the reason 05/10: Patient is resting comfortably on encounter. Remains on 3 L nasal cannula oxygen. He is s/p 1 dose of remdesivir Home O2 evaluated completed this morning. Patient desaturated to 85% while ambulating. Arrangements made with family independence case manager for home oxygen. Patient be discharged home with prescriptions for Decadron. Antibiotics were discontinued as procalcitonin was non - elevated. He was instructed to follow up with his primary care doctor ROSCOE. (1) Bilateral pneumonia Current Visit: Yes Status: Acute Qualifiers: Pneumonia type: due to unspecified organism Lung location: unspecified part of lung Qualified Code(s): J18.9 - Pneumonia, unspecified organism Plan to address problem: Possibly secondary to COVID-19. Patient placed on empiric IV antibiotics. Will await culture results. (2) Hypoxia Current Visit: Yes Status: Acute Plan to address problem: Secondary to the pneumonia. We will keep O2 saturation greater or equal to 92%. (3) Suspected 2019 novel coronavirus infection Current Visit: Yes Status: Acute Plan to address problem: Patient was diagnosed with COVID-19 about [address] will [address] on isolation precautions. Patient placed on IV steroid. We will place consult to infectious disease for evaluation. (4) Hyponatremia Current Visit: No Status: Acute Plan to address problem: Patient placed on IV fluid normal saline. We will monitor her chemistry. (5) DVT prophylaxis Current Visit: No Status: Acute Plan to address problem: Patient placed on anticoagulation with subcutaneous Lovenox. (6) Full code status Current Visit: No Status: Acute Plan to address problem: Patient is full code. Disposition: 30 STILL A PATIENT Final Discharge Diagnosis (Prints w/discharge instructions): SARS-CoV-2 pneumonia Time spent for discharge: 35 - Discharge Diagnoses (1) Acute respiratory failure with hypoxia Status: Acute (2) Pneumonia due to COVID-19 virus Status: Acute (3) Bilateral pneumonia Status: Acute Qualifiers: Pneumonia type: due to unspecified organism Lung location: unspecified part of lung Qualified Code(s): J18.9 - Pneumonia, unspecified organism (4) Hyponatremia Status: Acute Core Measure Documentation - Palliative Care Palliative Care/ Comfort Measures: Not Applicable - Core Measures Any of the following diagnoses?: none Exam - Physical Exam Narrative exam: Physical Exam: Constitutional: Alert, cooperative. No acute distress. on 2l NC Head, Ears, Nose: Normocephalic, atraumatic. External ears, nose normal Eyes: Conjunctivae/corneas clear. No icterus. No ptosis. Neck: Supple, no meningeal signs Oral: dentition fair, no thrush Cardiovascular: S1, S2 normal. Respiratory: Good air entry, clear to auscultation bilaterally GI: Soft, non-tender; bowel sounds normal. No peritoneal signs. Musculoskeletal: No pedal edema, no cyanosis. Skin: No rash or abscess, see nursing assessment for full skin exam Hem/Lymphatic: No palpable cervical or supraclavicular nodes. No lymphangitis Psych: Mood ok. Affect normal Neurological: Awake, alert, oriented. No gross abnormality - Constitutional Vitals: Temp Pulse Resp BP Pulse Ox 98.4 F 65 18 108/69 94 05/10/21 05:48 05/10/21 05:48 05/10/21 05:48 05/10/21 05:48 05/10/21 08:26 Plan Activity: advance as tolerated Weight Bearing Status: Weight Bear as Tolerated Diet: regular Durable Medical Equipment Needed Upon Discharge: Oxygen Follow up with: RUSLAN VARGAS MD [Primary Care Provider] - 7 Days Prescriptions: dexAMETHasone [Decadron] 4 mg PO DAILY 8 Days #16 tablet
[2021-05-10] MEDS: dexAMETHasone 4 MG/ML VIAL IV SCH (10:09)
[2021-05-10] MEDS: FUROSEMIDE 40 MG/4 ML INJ IV SCH (10:10)
--- NOTE | 2021-05-10 11:37 | Electrocardiograph Report ---
[facility] Test Date: 2021-05-09 Test Time: 08:21:08 Pat Name: KINGA BEAVER JR Department: Room: A366 1 Gender: M Administrative Office Clerk: SHWETA : 1955 Requested By: ROLF LEVIN Order Number: [id number] Reading MD: Steven Alejandre Measurements Intervals [place] Rate: 64 P: 49 [place]: 185 QRS: 40 QRSD: 89 T: 5 QT: 410 QTc: 423 Interpretive Statements Sinus rhythm Probable left atrial enlargement nonspecific st-t No previous ECG available for comparison Electronically Signed On 05-10-2021 11:37:36 EDT by Steven Alejandre
[2021-05-10 12:48] VITALS: BP 111/75
[2021-05-10] MEDS ORDERED: REMDESIVIR 100 MG in SODIUM CHLORIDE 0.9% 250ML 250 ML IV SCH (21:00)
== END 2021-05-10 15:12 | disposition home or self-care (01) | DRG 177 ==
LOC: ED 19:48 → 3A 22:35
PROVIDERS: ADMIT Internal Medicine Geriatric Medicine; ATTEND Internal Medicine
PROC: XW033E5 Introduction of Remdesivir Anti-infective into Peripheral Vein, Percutaneous Approach, New Technology Group 5 (ICD-10-PCS; principal; 2021-05-10)
DX: U07.1 COVID-19 (principal); J12.82 Pneumonia due to coronavirus disease 2019; E87.1 Hypo-osmolality and hyponatremia; R09.02 Hypoxemia
CPT/HCPCS: 36415; 71045; 80048; 80053; 82728; 83615; 83880; 84145; 84484; 85007; 85025; 85027; 85379; 85610; 86140; 93005; 94760; G0378; J0456; J0696; J1100; J1650; J1940; J7030; J7050; U0003